=== PATIENT | female | born 1990 | race Caucasian/White ===

== ENCOUNTER 2016-10-04 23:19 | Emergency (ER) | payer SELFPAY ==
[2016-10-04 23:19] VITALS: BMI 27.4
[2016-10-04 23:33] VITALS: TEMP 98.1
[2016-10-04] MEDS ORDERED: Albuterol-Ipratrop 3 mg / 0.5 (3 ml) UD ONE (23:44)
[2016-10-04] MEDS ORDERED: Albuterol-Ipratrop 3 mg / 0.5 (3 ml) UD INH STA (23:47)
[2016-10-05] MEDS ORDERED: Albuterol-Ipratrop 3 mg / 0.5 (3 ml) UD ONE ×2 (00:01→01:05)
[2016-10-05] MEDS ORDERED: Albuterol-Ipratrop 3 mg / 0.5 (3 ml) UD IH STA (00:46)
--- NOTE | 2016-10-05 01:32 | C.PDOC ---
Time Seen by Provider: 10/05/16 00:37 Chief Complaint (Nursing): Shortness Of Breath History Per: Patient Onset/Duration Of Symptoms: Days (about 1 month) Current Symptoms Are (Timing): Worse Exacerbating Factor(s): Coughing Current Respiratory Medications: See Home Med List Severity: Moderate Additional History Per: Prior Records Past Medical History Reviewed: Historical Data, Nursing Documentation, Vital Signs Vital Signs: Last Vital Signs Temp 98.1 F 10/04/16 23:30 Pulse 115 H 10/04/16 23:30 Resp 22 10/04/16 23:40 BP 113/72 10/04/16 23:30 Pulse Ox 95 10/04/16 23:30 - Medical History PMH: Anemia Family History: States: Unknown Family Hx - Social History Hx Tobacco Use: Yes Hx Alcohol Use: Yes Hx Substance Use: No - Immunization History Hx Tetanus Toxoid Vaccination: No Hx Influenza Vaccination: Yes Hx Pneumococcal Vaccination: Yes Review Of Systems Except As Marked, All Systems Reviewed And Found Negative. Constitutional: Negative for: Fever ENT: Positive for: Nose Congestion (sneezing) Cardiovascular: Negative for: Chest Pain Respiratory: Positive for: Cough, Wheezing. Negative for: Hemoptysis Gastrointestinal: Negative for: Vomiting, Abdominal Pain Musculoskeletal: Positive for: Back Pain. Negative for: Neck Pain, Leg Pain Skin: Negative for: Rash Neurological: Negative for: Weakness, Numbness, Seizures, Altered Mental Status Physical Exam - Physical Exam Appears: Non-toxic, No Acute Distress Skin: Normal Color, Warm, Dry, No Rash Head: Atraumatic, Normacephalic Eye(s): bilateral: Normal Inspection, PERRL, EOMI Neck: Normal ROM, Supple Cardiovascular: Rhythm Regular Respiratory: No Accessory Muscle Use, Wheezing (mild scattered) Gastrointestinal/Abdominal: Soft, No Tenderness Back: No CVA Tenderness Extremity: Normal ROM, No Pedal Edema, No Calf Tenderness Neurological/Psych: Oriented x3, Normal Speech, Normal Motor, Normal Sensation ED Course And Treatment O2 Sat by Pulse Oximetry: 95 Pulse Ox Interpretation: Normal - Radiology CXR: Interpreted by Me, Viewed By Me CXR Interpretation: Yes: No Acute Disease Progress Note: Pt feels much better and wants to go home. Lungs clear. Reassessment Condition: Improved Progress - Interventions Interventions:: Observation - Medications Administered Oral: Corticosteriod Inhaled nebulized: Anticholinergic, Beta-2 agonist - Data Reviewed Data Reviewed: Diagnostic imaging, Old records - Patient Status Patient status: Mostly improved - Continuity of Care Discussed patient case with:: Patient, Family-HIPPA compliant, ED Nurse - Patient Plan Patient Plan: Discharge, F/U with PCP, Continue present meds Disposition Counseled Patient/Family Regarding: Studies Performed, Diagnosis, Need For Followup, Rx Given, Smoking Cessation - Disposition Referrals: [facility] [Outside] Disposition: HOME/ ROUTINE Disposition Time: 01:34 Condition: IMPROVED Additional Instructions: Follow up in the clinic for further evaluation and treatment. Return to the ER if you develop shortness of breath, worsening of symptoms or if you have any other concerns. Prescriptions: Loratadine [Claritin] 10 mg PO DAILY #30 tab predniSONE [predniSONE Tab] 2 tab PO DAILY #8 tab Instructions: Asthma (ED) - Clinical Impression Clinical Impression: Asthma exacerbation
[2016-10-05 01:46] VITALS: BP 108/70; PULSE 98; RESP 20; O2SAT 97
--- NOTE | 2016-10-05 14:57 | RAD ---
HISTORY: Cough, SOB COMPARISON: No prior. TECHNIQUE: Chest PA and lateral FINDINGS: LUNGS: No active pulmonary disease. PLEURA: No significant pleural effusion identified. No pneumothorax apparent. CARDIOVASCULAR: Normal. OSSEOUS STRUCTURES: No significant abnormalities. VISUALIZED UPPER ABDOMEN: Normal. OTHER FINDINGS: None. IMPRESSION: No active disease.
== END 2016-10-05 01:47 | disposition home or self-care (01) ==
LOC: C.ER 23:19
DX: J45.901 Unspecified asthma with (acute) exacerbation (principal); F17.210 Nicotine dependence, cigarettes, uncomplicated

== ENCOUNTER 2017-05-30 08:10 | Emergency (ER) | payer MEDICAID ==
[2017-05-30 08:10] VITALS: BMI 27.4
[2017-05-30 08:34] VITALS: TEMP 98.1
[2017-05-30] MEDS ORDERED: Sodium Chloride 0.9% 1,000 ML IV ONE (08:48)
[2017-05-30] MEDS ORDERED: Sodium Chloride 0.9% 1,000 ML ONE (08:54)
[2017-05-30 09:18] LABS: SQUAMOUS EPITHIAL 9 /hpf (0-5); URINE BILIRUBIN NEGATIVE (NEGATIVE); URINE BLOOD NEGATIVE (NEGATIVE); URINE CLARITY Hazy (Clear); URINE COLOR Yellow (YELLOW); URINE GLUCOSE (UA) NORMAL (Normal); URINE LEUKOCYTE ESTERASE NEG Leu/uL (Negative); URINE NITRATE NEGATIVE (NEGATIVE); URINE PROTEIN NEGATIVE (NEGATIVE); URINE UROBILINOGEN NORMAL mg/dL (0.2-1.0)
--- NOTE | 2017-05-30 09:23 | CT ---
PROCEDURE: CT HEAD WITHOUT CONTRAST. HISTORY: Headache and dizziness for 3 months COMPARISON: None available. TECHNIQUE: Axial computed tomography images were obtained through the head/brain without intravenous contrast. Radiation dose: Total exam DLP = 800.38 mGy-cm. This CT exam was performed using one or more of the following dose reduction techniques: Automated exposure control, adjustment of the mA and/or kV according to patient size, and/or use of iterative reconstruction technique. FINDINGS: HEMORRHAGE: No intracranial hemorrhage. BRAIN: No mass effect or edema. No atrophy or chronic microvascular ischemic changes. VENTRICLES: Unremarkable. No hydrocephalus. CALVARIUM: Unremarkable. PARANASAL SINUSES: Unremarkable as visualized. No significant inflammatory changes. MASTOID AIR CELLS: Unremarkable as visualized. No inflammatory changes. OTHER FINDINGS: None. IMPRESSION: Normal CT of the Head.
[2017-05-30 10:14] LABS: BASO % 0.2 % (0.0-2.0); EOS # 0.1 K/uL (0.0-0.7); EOS % 1.4 % (0.0-4.0); HEMOGLOBIN 12.8 g/dL (11.0-16.0); LYMPH # 2.2 K/uL (1.0-4.3); LYMPH % 34.5 % (20.0-40.0); MEAN CORPUSCULAR HEMOGLOBIN 30.5 pg (27.0-31.0); MEAN CORPUSCULAR HGB CONC 34.7 g/dL (33.0-37.0); MEAN PLATELET VOLUME 9.1 fL (7.2-11.7); MONO # 0.4 K/uL (0.0-0.8); MONO % 6.6 % (0.0-10.0); NEUT # 3.6 K/uL (1.8-7.0); NEUT % 57.3 % (50.0-75.0); NRBC % 0.1 % (0.0-2.0); RBC 4.2 Mil/uL (3.80-5.20); RED CELL DISTRIBUTION WIDTH 13.2 % (11.5-14.5); WHITE BLOOD COUNT 6.3 K/uL (4.8-10.8)
[2017-05-30 10:26] LABS: ALB/GLOB RATIO 1.3 (1.0-2.1); ALBUMIN 3.9 g/dL (3.5-5.0); ALT/SGPT 77 U/L (9-52); AST/SGOT 40 U/L (14-36); BLOOD UREA NITROGEN 14 mg/dL (7-17); CALCIUM 8.8 mg/dl (8.6-10.4); GFR AFRICAN-AMERICAN > 60; GFR NON-AFRICAN AMERICAN > 60
[2017-05-30 10:27] VITALS: BP 126/83; PULSE 89; RESP 16; O2SAT 100
--- NOTE | 2017-05-30 10:38 | C.PDOC ---
History Of Present Illness <Mi Claros - Last Filed: 05/30/17 10:36> <Maral Campos - Last Filed: 05/30/17 11:07> 26 years old female with no significant PMHx presents to ED with complaints of feeling intermittent lightheadedness from seating to standing position for the past 3 months. Associated symptoms include generalized headaches which improve after taking Tylenol. Patient also complaints of pain to her left upper back and flank area that began 2 days ago. Patient admits to heavy lifting at work. Denies Urinary symptoms. She states she hasn't had her last menstrual period was in March but she is irregular. Patient hasn't been to her primary doctor in 2 years and wants to get checked out. (Maral Campos) <Mi Claros - Last Filed: 05/30/17 10:36> History Per: Patient History/Exam Limitations: no limitations Onset/Duration Of Symptoms: Days, Intermittent Episodes Current Symptoms Are (Timing): Still Present Recent travel outside of the [place] States: No <Maral Campos - Last Filed: 05/30/17 11:07> Time Seen by Provider: 05/30/17 08:32 Chief Complaint (Nursing): Dizziness/Lightheaded Past Medical History - Medical History PMH: Anemia Denies: Chronic Kidney Disease Family History: States: Unknown Family Hx - Social History Hx Tobacco Use: Yes Hx Alcohol Use: Yes Hx Substance Use: No - Immunization History Hx Tetanus Toxoid Vaccination: No Hx Influenza Vaccination: No Hx Pneumococcal Vaccination: No <Mi Claros - Last Filed: 05/30/17 10:36> Reviewed: Historical Data, Nursing Documentation, Vital Signs - Medical History PMH: Anemia Surgical History: No Surg Hx Family History: States: Unknown Family Hx <Maral Campos - Last Filed: 05/30/17 11:07> Vital Signs: Last Vital Signs Temp 98.1 F 05/30/17 08:24 Pulse 89 05/30/17 10:27 Resp 16 05/30/17 10:27 BP 126/83 05/30/17 10:27 Pulse Ox 100 05/30/17 10:38 Review Of Systems Constitutional: Negative for: Fever, Chills Cardiovascular: Negative for: Chest Pain Gastrointestinal: Negative for: Vomiting, Abdominal Pain Genitourinary: Negative for: Dysuria, Hematuria Musculoskeletal: Positive for: Back Pain (Left upper ), Other (Pain to flank areas) Neurological: Positive for: Headache, Other (Lightheadedness). Negative for: Weakness, Numbness <Maral Campos - Last Filed: 05/30/17 11:07> Physical Exam - Physical Exam Appears: Well, Non-toxic, No Acute Distress Skin: Normal Color, Warm, Dry Head: Atraumatic, Normacephalic Eye(s): bilateral: Normal Inspection, PERRL Ear(s): Bilateral: Normal Nose: Normal, No Discharge, No Epistaxis Oral Mucosa: Moist Throat: Normal, No Erythema, No Exudate Neck: Supple Chest: Symmetrical, No Tenderness Cardiovascular: Rhythm Regular Respiratory: Normal Breath Sounds, No Decreased Breath Sounds, No Rales, No Rhonchi, No Wheezing Gastrointestinal/Abdominal: Soft, No Tenderness Back: Other (Left sided latissimus dorsi muscle tenderness) Extremity: Normal ROM (Back ) Neurological/Psych: Oriented x3, Normal Speech, Normal Cognition <Maral Campos Last Filed: 05/30/17 11:07> ED Course And Treatment - Laboratory Results Result Diagrams: 05/30/17 10:04 05/30/17 10:04 O2 Sat by Pulse Oximetry: 100 <ClarosMi Musa - Last Filed: 05/30/17 10:36> - Laboratory Results Result Diagrams: 05/30/17 10:04 05/30/17 10:04 O2 Sat by Pulse Oximetry: 100 (RA) Pulse Ox Interpretation: Normal - CT Scan/US CT Head Other Rad Studies (CT/US): Read By Radiologist, Radiology Report Reviewed CT/US Interpretation: PROCEDURE: CT HEAD WITHOUT CONTRAST. HISTORY: Headache and dizziness for 3 months. COMPARISON: None available. TECHNIQUE: Axial computed tomography images were obtained through the head/brain without intravenous contrast. Radiation dose: Total exam DLP = 800.38 mGy-cm. This CT exam was performed using one or more of the following dose reduction techniques: Automated exposure control, adjustment of the mA and/or kV according to patient size, and/or use of iterative reconstruction technique. FINDINGS: HEMORRHAGE: No intracranial hemorrhage. BRAIN: No mass effect or edema. No atrophy or chronic microvascular ischemic changes. VENTRICLES: Unremarkable. No hydrocephalus. CALVARIUM: Unremarkable. PARANASAL SINUSES: Unremarkable as visualized. No significant inflammatory changes. MASTOID AIR CELLS: Unremarkable as visualized. No inflammatory changes. OTHER FINDINGS: None. IMPRESSION: Normal CT of the Head. <Maral Campos - Last Filed: 05/30/17 11:07> Medical Decision Making <Mi Claros - Last Filed: 05/30/17 10:36> <Maral Campos - Last Filed: 05/30/17 11:07> Medical Decision Making: Ordered CT Head, blood work, and urinalysis. Administered IV fluids. Patient is not . Labs: Normal. (Maral Campos) Disposition Counseled Patient/Family Regarding: Diagnosis, Need For Followup, Rx Given - Disposition Disposition Time: 10:36 - POA Present On Arrival: None <Mi Claros - Last Filed: 05/30/17 10:36> <Maral Campos - Last Filed: 05/30/17 11:07> - Disposition Referrals: [facility] [Outside] [facility] [Outside] Disposition: HOME/ ROUTINE Condition: IMPROVED Additional Instructions: Your labs and CT scan reports were provided to you It is important that you follow up with primary care doctor or clinic for further evaluation and care Take meclizine as needed for any dizziness Return to the emergency department at any time if symptoms persist or worsen. Prescriptions: Meclizine [Meclizine*] 25 mg PO Q6 #30 tab Instructions: Vertigo (a Type of Dizziness), Low Back Pain (DC) Forms: [employer] (Sol[place] Islander) - Clinical Impression Clinical Impression: Dizziness, Back pain - PA / PRINCIPAL CLERK / Resident Statement MD/DO has reviewed & agrees with the documentation as recorded. <Maral Campos - Last Filed: 05/30/17 11:07>
--- NOTE | 2017-05-30 11:12 | C.PDOC ---
History Of Present Illness 26 years old female with no significant PMHx presents to ED with complaints of feeling intermittent lightheadedness from seating to standing position for the past 3 months. Associated symptoms include generalized headaches which improve after taking Tylenol. Patient also complains of pain to her left upper back and flank area that began 2 days ago. Patient admits to heavy lifting at work. Denies Urinary symptoms. She states her last menstrual period was in March, but she is irregular. Patient has not been to her primary doctor in 2 years, and wants to get checked out. Time Seen by Provider: 05/30/17 08:32 Chief Complaint (Nursing): Dizziness/Lightheaded History Per: Patient History/Exam Limitations: no limitations Onset/Duration Of Symptoms: Hrs, Days, Intermittent Episodes Current Symptoms Are (Timing): Still Present Activity At Onset Of Symptoms: Had Just Stood up Seizure Or Post-ictal Symptoms: None Possible Causative Factor(s): denies: Vertigo Fall Associated With With Symptoms: No Recent travel outside of the [place] States: No - Symptoms Of CVA Associated Symptoms: denies: Impaired Speech, Seizure Activity, New Vision Deficit(Left), New Vision Deficit(Right), Decreased Ability To Walk, New Confusion Recent Head Trauma: No Past Medical History Reviewed: Historical Data, Nursing Documentation, Vital Signs Vital Signs: Last Vital Signs Temp 98.1 F 05/30/17 08:24 Pulse 89 05/30/17 10:27 Resp 16 05/30/17 10:27 BP 126/83 05/30/17 10:27 Pulse Ox 100 05/30/17 11:15 - Medical History PMH: Anemia Surgical History: No Surg Hx Family History: States: Unknown Family Hx - Social History Hx Tobacco Use: Yes Hx Alcohol Use: Yes Hx Substance Use: No - Immunization History Hx Tetanus Toxoid Vaccination: No Hx Influenza Vaccination: No Hx Pneumococcal Vaccination: No Review Of Systems Constitutional: Negative for: Fever, Chills Cardiovascular: Negative for: Chest Pain Gastrointestinal: Negative for: Nausea, Vomiting, Abdominal Pain, Diarrhea Genitourinary: Negative for: Dysuria Musculoskeletal: Positive for: Back Pain (upper left), Other (flank areas pain ) Neurological: Positive for: Headache, Other (lightheadedness). Negative for: Weakness, Numbness Physical Exam - Physical Exam Appears: Well, Non-toxic, No Acute Distress Skin: Normal Color, Warm, Dry Head: Atraumatic, Normacephalic Eye(s): bilateral: Normal Inspection, PERRL, EOMI, Other (no nystagmus) Ear(s): Bilateral: Normal Nose: Normal, No Discharge, No Epistaxis Oral Mucosa: Moist Throat: Normal, No Erythema, No Exudate Neck: Supple Chest: Symmetrical, No Tenderness Cardiovascular: Rhythm Regular Respiratory: Normal Breath Sounds, No Decreased Breath Sounds, No Rales, No Rhonchi, No Wheezing Gastrointestinal/Abdominal: Soft, No Tenderness Back: Normal Inspection, No Vertebral Tenderness, No Decreased ROM, Other (left sided latissimus dorsi muscle tenderness ) Extremity: Normal ROM (x4), No Tenderness, No Deformity, No Swelling Neurological/Psych: Oriented x3, Normal Speech, Normal Cranial Nerves, No Cerebellar Signs, Normal Motor, Normal Sensation Gait: Steady ED Course And Treatment - Laboratory Results Result Diagrams: 05/30/17 10:04 05/30/17 10:04 Lab Interpretation: No Acute Changes O2 Sat by Pulse Oximetry: 100 (RA) Pulse Ox Interpretation: Normal - CT Scan/US CT Head Other Rad Studies (CT/US): Read By Radiologist, Radiology Report Reviewed CT/US Interpretation: PROCEDURE: CT HEAD WITHOUT CONTRAST. HISTORY: Headache and dizziness for 3 months. COMPARISON: None available. TECHNIQUE: Axial computed tomography images were obtained through the head/brain without intravenous contrast. Radiation dose: Total exam DLP = 800.38 mGy-cm. This CT exam was performed using one or more of the following dose reduction techniques: Automated exposure control, adjustment of the mA and/or kV according to patient size, and/or use of iterative reconstruction technique. FINDINGS: HEMORRHAGE: No intracranial hemorrhage. BRAIN: No mass effect or edema. No atrophy or chronic microvascular ischemic changes. VENTRICLES: Unremarkable. No hydrocephalus. CALVARIUM: Unremarkable. PARANASAL SINUSES: Unremarkable as visualized. No significant inflammatory changes. MASTOID AIR CELLS: Unremarkable as visualized. No inflammatory changes. OTHER FINDINGS: None. IMPRESSION: Normal CT of the Head. Medical Decision Making Medical Decision Making: Patient is not , POC was negative. Ordered CT Head, blood work, and urinalysis. Administered IV fluids. Labs: All normal. CT head shows no ICH or acute abnormality Patient remained afebrile alert and oriented with no neuro deficits. She was laying comfortably on stretcher in no distress. Discussed results with patient, and copy of labs and CT report was provided. Her flank pain is likely muscular related. I advised her to take analgesics as needed. I instructed her to follow up with the clinic or contact [facility] service to assist with finding PCP. Patient feels comfortable going home and will be discharged. Patient given follow up instructions. Instructed to return to ER if symptoms worsen or new symptoms arise. Disposition Counseled Patient/Family Regarding: Diagnosis, Need For Followup, Rx Given - Disposition Referrals: [facility] [Outside] [facility] [Outside] Disposition: HOME/ ROUTINE Disposition Time: 10:40 Condition: IMPROVED Additional Instructions: Your labs and CT scan reports were provided to you It is important that you follow up with primary care doctor or clinic for further evaluation and care Take meclizine as needed for any dizziness Return to the emergency department at any time if symptoms persist or worsen. Prescriptions: Meclizine [Meclizine*] 25 mg PO Q6 #30 tab Instructions: Vertigo (a Type of Dizziness), Low Back Pain (DC) Forms: [employer] (Greek) - POA Present On Arrival: None - Clinical Impression Clinical Impression: Dizziness, Back pain - PA / STOCK AND STATION AGENT / Resident Statement MD/DO has reviewed & agrees with the documentation as recorded. - Scribe Statement The provider has reviewed the documentation as recorded by the Joshua Paige All medical record entries made by the Joshua were at my direction and personally dictated by me. I have reviewed the chart and agree that the record accurately reflects my personal performance of the history, physical exam, medical decision making, and the department course for this patient. I have also personally directed, reviewed, and agree with the discharge instructions and disposition.
== END 2017-05-30 10:44 | disposition home or self-care (01) ==
LOC: C.ER 08:10
DX: R42 Dizziness and giddiness (principal); M54.9 Dorsalgia, unspecified; D64.9 Anemia, unspecified
CPT/HCPCS: 70450; 80053; 81001; 85025; 96360; 99285; J7040

== ENCOUNTER 2018-05-12 19:54 | Emergency (ER) | payer MEDICAID, OTHER ==
[2018-05-12 19:54] VITALS: BMI 27.4
[2018-05-12 20:06] VITALS: PULSE 95; TEMP 97.6
--- NOTE | 2018-05-12 20:30 | C.PDOC ---
History Of Present Illness 27 year old female presents to the ER with 3 days of intermittent sharp left sided chest pain. Patient states the pain is localized to the left chest, shoulder, and neck, worsens with movement and inspiration. She has not taken anything for the pain. Denies SOB. Patient reports positive tobacco use, no Hx of DVT/PE, questionable family Hx of heart disease. <Cosmo Mullins M - Last Filed: 05/12/18 23:39> History Per: Patient History/Exam Limitations: no limitations Onset/Duration Of Symptoms: Days, Intermittent Episodes Current Symptoms Are (Timing): Still Present Quality: Sharp Exacerbating Factors: Movement, Deep Breathing Alleviating Factors: None Recent travel outside of the [place]: No <Cosmo Mullins - Last Filed: 05/12/18 23:39> <Rebecca Mercado - Last Filed: 05/13/18 15:57> Time Seen by Provider: 05/12/18 20:14 Chief Complaint (Nursing): Chest Pain Past Medical History Reviewed: Historical Data, Nursing Documentation, Vital Signs Vital Signs: Last Vital Signs Temp 97.6 F 05/12/18 20:02 Pulse 95 H 05/12/18 20:02 Resp 18 05/12/18 20:02 BP 133/89 05/12/18 20:02 Pulse Ox 100 05/12/18 20:02 - Medical History PMH: Anemia Family History: States: Unknown Family Hx - Social History Hx Tobacco Use: Yes Hx Alcohol Use: Yes Hx Substance Use: No - Immunization History Hx Tetanus Toxoid Vaccination: No Hx Influenza Vaccination: No Hx Pneumococcal Vaccination: No <Cosmo Mullins M - Last Filed: 05/12/18 23:39> Vital Signs: Last Vital Signs Temp 97.6 F 05/12/18 20:02 Pulse 95 H 05/12/18 20:02 Resp 18 05/12/18 23:49 BP 128/79 05/12/18 23:49 Pulse Ox 98 05/12/18 23:49 <Rebecca Mercado - Last Filed: 05/13/18 15:57> Review Of Systems Except As Marked, All Systems Reviewed And Found Negative. Constitutional: Negative for: Fever, Chills Cardiovascular: Positive for: Chest Pain Respiratory: Negative for: Shortness of Breath Gastrointestinal: Negative for: Nausea, Vomiting <Cosmo Mullins [facility] Last Filed: 05/12/18 23:39> Physical Exam - Physical Exam Appears: Non-toxic Skin: Normal Color, Warm, Dry Head: Atraumatic, Normacephalic Eye(s): bilateral: Normal Inspection Oral Mucosa: Moist Neck: Normal, No Midline Cervical Tenderness, No Paracervical Tenderness, No Step Off Deformity, Supple Chest: Tenderness (Reproducible to left side), Other (No gross swelling) Cardiovascular: Rhythm Regular Respiratory: Normal Breath Sounds, No Rales, No Rhonchi, No Wheezing Gastrointestinal/Abdominal: Soft, No Tenderness Back: No Vertebral Tenderness, No Paraspinal Tenderness Extremity: Normal ROM (x4), Tenderness (Reproducible tenderness to left shoulder), Capillary Refill (<2 seconds), No Deformity, No Swelling Pulses: Left Radial: Normal, Right Radial: Normal Neurological/Psych: Oriented x3, Normal Speech, Normal Motor, Normal Sensation Gait: Steady <Cosmo Mullins [facility] Last Filed: 05/12/18 23:39> ED Course And Treatment - Laboratory Results Result Diagrams: 05/12/18 20:32 05/12/18 20:32 ECG: Interpreted By Me, Viewed By Me ECG Rhythm: Sinus Rhythm ECG Interpretation: Normal Interpretation Of ECG: Normal intervals, normal axis, no ST/T wave abnormalities. Rate From EC O2 Sat by Pulse Oximetry: 100 (Room air) Pulse Ox Interpretation: Normal <Cosmo Mullins [facility] Filed: 05/12/18 23:39> - Laboratory Results Result Diagrams: 05/12/18 20:32 05/12/18 20:32 Lab Results: D-Dimer, Quantitative 488 ng/mlDDU (0-243) H 05/12/18 20:32 Troponin I < 0.0120 ng/mL (0.00-0.120) 05/12/18 20:32 Total Bilirubin 0.4 mg/dL (0.2-1.3) 05/12/18 20:32 AST 32 U/L (14-36) 05/12/18 20:32 ALT 45 U/L (9-52) 05/12/18 20:32 Alkaline Phosphatase 90 U/L (38-126) 05/12/18 20:32 Total Protein 7.2 g/dL (6.3-8.3) 05/12/18 20:32 Albumin 4.3 g/dL (3.5-5.0) 05/12/18 20:32 Globulin 2.9 gm/dL (2.2-3.9) 05/12/18 20:32 Albumin/Globulin Ratio 1.5 (1.0-2.1) 05/12/18 20:32 <Rebecca Mercado C - Last Filed: 05/13/18 15:57> Medical Decision Making Medical Decision Making: EKG, blood work, CXR ordered. Toradol administered. chest wall pain/musculoskeletal pain will discharge home to follow up with pmd within 2 days patient states improvement. <Cosmo Mullins M - Last Filed: 05/12/18 23:39> Medical Decision Making: CT scan was placed in radiology reviewed for possible artifact vs. subsegmental PE's. Patient was called and case was discussed. She will follow up and return to have a VQ scan performed. <Rebecca Mercado C - Last Filed: 05/13/18 15:57> Disposition - Disposition Disposition Time: 23:40 <Cosmo Mullins M - Last Filed: 05/12/18 23:39> <Rebecca Mercado C - Last Filed: 05/13/18 15:57> - Disposition Referrals: [facility] [Outside] Disposition: HOME/ ROUTINE Condition: STABLE Additional Instructions: follow up with your doctor within 2 days call to make an appointment take medication as needed for pain return to ER if symptoms worsens or progress Prescriptions: Naproxen [Naprosyn] 500 mg PO BID PRN #16 tab PRN Reason: Pain, Moderate (4-7) Instructions: Muscle and Bone Pain (DC), Costochondritis (DC) Forms: [employer] (German), General Discharge Instructions - Clinical Impression Clinical Impression: Chest wall pain, Musculoskeletal pain - Scribe Statement The provider has reviewed the documentation as recorded by the Lindaibsabina Gimenez All medical record entries made by the Scribe were at my direction and personally dictated by me. I have reviewed the chart and agree that the record accurately reflects my personal performance of the history, physical exam, medical decision making, and the department course for this patient. I have also personally directed, reviewed, and agree with the discharge instructions and disposition. <Cosmo Mullins - Last Filed: 05/12/18 23:39>
[2018-05-12 20:37] LABS: BASO % 0.3 % (0.0-2.0); EOS # 0.1 K/uL (0.0-0.7); EOS % 1.5 % (0.0-4.0); HEMOGLOBIN 13.4 g/dL (11.0-16.0); LYMPH # 3.8 K/uL (1.0-4.3); LYMPH % 38.8 % (20.0-40.0); MEAN CORPUSCULAR HEMOGLOBIN 30.5 pg (27.0-31.0); MEAN CORPUSCULAR HGB CONC 33.9 g/dL (33.0-37.0); MEAN PLATELET VOLUME 9.1 fL (7.2-11.7); MONO # 0.5 K/uL (0.0-0.8); MONO % 4.8 % (0.0-10.0); NEUT # 5.3 K/uL (1.8-7.0); NEUT % 54.6 % (50.0-75.0); NRBC % 0.1 % (0.0-2.0); RBC 4.39 Mil/uL (3.80-5.20); RED CELL DISTRIBUTION WIDTH 12.8 % (11.5-14.5); WHITE BLOOD COUNT 9.8 K/uL (4.8-10.8)
[2018-05-12 20:38] LABS: MEAN CELL VOLUME 90.1 fL (81.0-99.0)
[2018-05-12 20:51] LABS: ALB/GLOB RATIO 1.5 (1.0-2.1); ALBUMIN 4.3 g/dL (3.5-5.0); ALT/SGPT 45 U/L (9-52); AST/SGOT 32 U/L (14-36); BLOOD UREA NITROGEN 17 mg/dL (7-17); CALCIUM 8.8 mg/dl (8.6-10.4); GFR NON-AFRICAN AMERICAN > 60
[2018-05-12] MEDS ORDERED: Iodixanol 320 mg/ml 150 ml Bottle IV ONE (21:57)
[2018-05-12 23:50] VITALS: BP 128/79; RESP 18; O2SAT 98
--- NOTE | 2018-05-13 10:02 | CT ---
CT chest pulmonary angiogram HISTORY: Chest pain. Elevated D-dimer. COMPARISON: None available. TECHNIQUE: CT chest pulmonary angiogram was performed utilizing multiple contiguous axial images with the use of intravenous contrast according to pulmonary embolism protocol. Subsequently, sagittal and coronal reformatted images were obtained. Sagittal and coronal MIPS reformatted images were also obtained. This CT exam was performed using one or more of the following dose reduction techniques: Automated exposure control, adjustment of the mA and/or kV according to patient size, and/or use of iterative reconstruction technique. Findings: No evidence of gross central pulmonary embolism. More limited evaluation of the segmental and subsegmental branches secondary to motion and streak artifact. For example, questionable filling defect within a segmental branch of the right upper lobe pulmonary artery on series 2, image 65 may represent artifact. An additional questionable filling defect seen within a segmental branch of the left pulmonary artery on series 601, image 73 may also represent artifact. If symptoms persists, consider correlation with repeat scan and or V/Q scan. Right lung: Grossly preserved. Left lung: Grossly preserved. Trachea thru central airways are patent. No evidence of acute aortic dissection. No significant axillary adenopathy. Heterogeneity of the thyroid. Probable residual thymus tissue. No significant mediastinal or hilar adenopathy. Fatty infiltration of the liver. Impression: No evidence of gross central pulmonary embolism. More limited evaluation of the segmental and subsegmental branches secondary to motion and streak artifact. For example, questionable filling defect within a segmental branch of the right upper lobe pulmonary artery on series 2, image 65 may represent artifact. An additional questionable filling defect seen within a segmental branch of the left pulmonary artery on series 601, image 73 may also represent artifact. If symptoms persists, consider correlation with repeat scan and or V/Q scan. Fatty infiltration of the liver. A preliminary report was generated at 11:35 p.m. on 05/12/[address] Andrea Coe from [facility]. Please note this case was placed in the PA review folder.
--- NOTE | 2018-05-13 10:59 | RAD ---
HISTORY: chest pain COMPARISON: None available. TECHNIQUE: Chest PA and lateral FINDINGS: LUNGS: No focal consolidation. Please note that chest x-ray has limited sensitivity for the detection of pulmonary masses. PLEURA: No significant pleural effusion identified. No definite pneumothorax . CARDIOVASCULAR: Heart size appears within normal limits. No atherosclerotic calcification present. OSSEOUS STRUCTURES: No acute osseous abnormality identified. VISUALIZED UPPER ABDOMEN: Unremarkable. OTHER FINDINGS: None. IMPRESSION: No focal consolidation.
--- NOTE | 2018-05-17 23:24 | CARD ---
APPROVED REPORT Date of service: 05/12/2018 EKG Measurement Heart [id number] <Conclusion> Normal sinus rhythm Normal ECG
== END 2018-05-12 23:50 | disposition home or self-care (01) ==
LOC: C.ER 19:54
DX: R07.89 Other chest pain (principal); M79.18 Myalgia, other site
CPT/HCPCS: 71046; 71275; 80053; 84484; 85025; 85378; 96374; 99285; J1885; Q9967

== ENCOUNTER 2018-05-13 16:57 | Emergency (ER) | payer MEDICAID ==
[2018-05-13 16:58] VITALS: BMI 27.4
--- NOTE | 2018-05-13 17:34 | C.PDOC ---
History Of Present Illness 27 y/o female returns to the ED as instructed for V/Q scan. Patient was seen here yesterday for left-sided chest pressure, found to have elevated D-dimer, and had CT scan that was initially read as negative for PE by [facility]. CT was over-read this morning, indicating "More limited evaluation of the segmental and subsegmental branches secondary to motion and streak artifact" and patient was recommended to come back for V/Q scan if symptoms persisted. Patient states the pain was associated with palpitations, described as her heart pounding. Otherwise she denies any fall or injury. No associated cough, fever, chills, pleuritic pain, or lower extremity pain or swelling. She denies prior hx of lung problems. Of note, patient admits to smoking 4-5 cigarettes per day. <Rebecca Mercado - Last Filed: 05/13/18 19:04> History Per: Patient History/Exam Limitations: no limitations Onset/Duration Of Symptoms: Days Reports Recently: Seen In ED <Rebecca Mercado - Last Filed: 05/13/18 19:04> <Cosmo Mullins - Last Filed: 05/13/18 22:39> Time Seen by Provider: 05/13/18 17:10 Chief Complaint (Nursing): Medical Clearance Past Medical History Reviewed: Historical Data, Nursing Documentation, Vital Signs Vital Signs: Last Vital Signs Temp 98.9 F 05/13/18 17:03 Pulse 101 H 05/13/18 17:03 Resp 20 05/13/18 17:03 BP 139/83 05/13/18 17:03 Pulse Ox 97 05/13/18 17:03 - Medical History PMH: Anemia Family History: States: Unknown Family Hx - Social History Hx Tobacco Use: Yes Hx Alcohol Use: Yes Hx Substance Use: No - Immunization History Hx Tetanus Toxoid Vaccination: No Hx Influenza Vaccination: No Hx Pneumococcal Vaccination: No <Rebecca Mercado - Last Filed: 05/13/18 19:04> Vital Signs: Last Vital Signs Temp 98.6 F 05/13/18 20:20 Pulse 80 05/13/18 20:20 Resp 16 05/13/18 20:20 BP 135/83 05/13/18 20:20 Pulse Ox 100 05/13/18 20:20 <Cosmo Mullins - Last Filed: 05/13/18 22:39> Review Of Systems Constitutional: Negative for: Fever, Chills ENT: Negative for: Nose Congestion Cardiovascular: Positive for: Chest Pain, Palpitations Respiratory: Negative for: Cough, Shortness of Breath Gastrointestinal: Negative for: Nausea, Vomiting Musculoskeletal: Negative for: Leg Pain, Other (Swelling) Skin: Negative for: Rash Neurological: Negative for: Weakness, Numbness, Dizziness <Rebecca Mercado - Last Filed: 05/13/18 19:04> Physical Exam - Physical Exam Appears: Non-toxic, No Acute Distress Skin: Warm, Dry Head: Atraumatic, Normacephalic Eye(s): bilateral: Normal Inspection, PERRL, EOMI Oral Mucosa: Moist Neck: Normal ROM Chest: Symmetrical, No Tenderness, No Ecchymosis Cardiovascular: Rhythm Regular, No Murmur Respiratory: Normal Breath Sounds, No Rales, No Rhonchi, No Wheezing Gastrointestinal/Abdominal: Soft, No Tenderness, No Distention Extremity: Bilateral: Atraumatic, No Pedal Edema, Normal Color And Temperature Pulses: Left Dorsalis Pedis: Normal, Right Dorsalis Pedis: Normal Neurological/Psych: Oriented x3, Normal Cranial Nerves, Normal Motor, Normal Sensation Gait: Steady <Rebecca Mercado - Last Filed: 05/13/18 19:04> ED Course And Treatment - Laboratory Results Result Diagrams: 05/13/18 17:43 05/13/18 17:43 O2 Sat by Pulse Oximetry: 97 (RA) Pulse Ox Interpretation: Normal <Rebecca Mercado - Last Filed: 05/13/18 19:04> - Laboratory Results Result Diagrams: 05/13/18 17:43 05/13/18 17:43 Lab Results: Total Bilirubin 0.3 mg/dL (0.2-1.3) 05/13/18 17:43 AST 25 U/L (14-36) 05/13/18 17:43 ALT 44 U/L (9-52) 05/13/18 17:43 Alkaline Phosphatase 84 U/L (38-126) 05/13/18 17:43 Total Protein 7.2 g/dL (6.3-8.3) 05/13/18 17:43 Albumin 4.4 g/dL (3.5-5.0) 05/13/18 17:43 Globulin 2.8 gm/dL (2.2-3.9) 05/13/18 17:43 Albumin/Globulin Ratio 1.6 (1.0-2.1) 05/13/18 17:43 - Other Rad VQ X-Ray: Interpreted by Me, Viewed By Me Interpretation: Name:ORLY TOMPKINS Exam Date:May 13, 2018 7:55:03 PM EST. Modality Type:NM\\SD\\CA. Description:NM - VQ PULMONARY VENT AND PERFUSION IMAGING. Gender:F Laterality:Not applicable. :90 Referring Physician:Rebecca Mercado ([place]). EXAM: NM Lung Perfusion and Ventilation Scan. CLINICAL HISTORY: ? PE, Chest pain 8.5 mCi XE-133 5.1 mCi TC-MAA. TECHNIQUE: Ventilation images of the lungs were obtained after inhalation of the radiopharmceutical. Then, radiolabeled MAA was administered intravenously and planar images of the lungs were obtained in multiple projections. RADIOPHARMACEUTICAL: Ventilation: 8.5 mCi XE-133 5.1. Perfusion: 5.1 mCi TC-MAA. COMPARISON: None provided. FINDINGS: VENTILATION: No segmental ventilation defect. PERFUSION: No segmental perfusion defect. IMPRESSION: Normal VQ scan based on modified PIOPED criteria. . Electronically signed on May 13, 2018 10:24:59 PM EST by: Andrea Coe M.D., ANGELICA Certified By ABR & CBC[employer]. Fellowship Trained MRI and CT Specialist. <Cosmo Mullins M - Last Filed: 05/13/18 22:39> Medical Decision Making Medical Decision Making: Impression: Chest Pain, r/o PE Plan: * V/Q scan pending <Rebecca Mercado C - Last Filed: 05/13/18 19:04> Medical Decision Making: Received patient in s/o pending v/q scan. Patient resting comfortable. Walking in ED. NO limitations. Will discharge her home and advise follow up with her doctor within 2 days. <Cosmo Mullins M - Last Filed: 05/13/18 22:39> Disposition - Disposition Disposition Time: 19:06 <Rebecca Mercado - Last Filed: 05/13/18 19:04> - Disposition Disposition Time: 22:39 <Cosmo Mullins - Last Filed: 05/13/18 22:39> - Disposition Referrals: Farnaz Ramirez [Non-Staff] - Condition: STABLE Additional Instructions: follow up with your doctor within 2 days call to make an appointment take medications as prescribed return to ER if symptoms worsens or progress Instructions: Costochondritis (DC) Forms: [employer] (Kosovan), General Discharge Instructions - Clinical Impression Clinical Impression: Chest wall pain - PA / CRUISE CONSULTANT / Resident Statement MD/DO has reviewed & agrees with the documentation as recorded. - Scribe Statement The provider has reviewed the documentation as recorded by the Scribe Ayesha Schwartz All medical record entries made by the Scribe were at my direction and personally dictated by me. I have reviewed the chart and agree that the record accurately reflects my personal performance of the history, physical exam, medical decision making, and the department course for this patient. I have also personally directed, reviewed, and agree with the discharge instructions and disposition. <Rebecca Mercado C - Last Filed: 05/13/18 19:04> Physician Patient Turnover Patient Signed Over To: Cosmo Mullins Handoff Comments: Pending VQ scan <Rebecca Mercado - Last Filed: 05/13/18 19:04>
[2018-05-13 17:48] LABS: BASO % 0.4 % (0.0-2.0); EOS # 0.1 K/uL (0.0-0.7); EOS % 1.3 % (0.0-4.0); HEMOGLOBIN 13.4 g/dL (11.0-16.0); LYMPH # 2.7 K/uL (1.0-4.3); MEAN CELL VOLUME 89.8 fL (81.0-99.0); MEAN CORPUSCULAR HEMOGLOBIN 29.9 pg (27.0-31.0); MEAN CORPUSCULAR HGB CONC 33.2 g/dL (33.0-37.0); MEAN PLATELET VOLUME 8.7 fL (7.2-11.7); MONO # 0.4 K/uL (0.0-0.8); MONO % 5.1 % (0.0-10.0); NEUT % 56.2 % (50.0-75.0); RBC 4.47 Mil/uL (3.80-5.20); RED CELL DISTRIBUTION WIDTH 13.3 % (11.5-14.5); WHITE BLOOD COUNT 7.2 K/uL (4.8-10.8)
[2018-05-13 18:26] LABS: ALB/GLOB RATIO 1.6 (1.0-2.1); ALBUMIN 4.4 g/dL (3.5-5.0); ALT/SGPT 44 U/L (9-52); AST/SGOT 25 U/L (14-36); BLOOD UREA NITROGEN 17 mg/dL (7-17); CALCIUM 8.9 mg/dl (8.6-10.4); GFR NON-AFRICAN AMERICAN > 60
[2018-05-13 20:53] VITALS: RESP 16
[2018-05-13 22:28] VITALS: PULSE 83
[2018-05-13 22:46] VITALS: BP 129/81; TEMP 98.4; O2SAT 100
--- NOTE | 2018-05-14 11:41 | NM ---
Date of service: 05/13/2018 COMPARISON: 05/12/2018 single-view chest. 05/12/2018 CT pulmonary angiogram TECHNIQUE: 8.5 mCi technetium 99-m DTPA aerosol. 5.1 mCI technetium 99-m MAA administered intravenously. FINDINGS: VENTILATION COMPONENT: Normal. PERFUSION COMPONENT: Normal. IMPRESSION: Negative ventilation perfusion scan for pulmonary embolism. Concordant findings (preliminary report) provided by [facility].
== END 2018-05-13 22:46 | disposition home or self-care (01) ==
LOC: C.ER 16:57
DX: R07.89 Other chest pain (principal); F17.210 Nicotine dependence, cigarettes, uncomplicated
CPT/HCPCS: 78582; 80053; 81025; 85025; 99284; A9540; A9558